=== PATIENT | female | born 1990 | race Asian ===

== ENCOUNTER → 2023-09-25 12:34 | Outpatient (REF) | payer OTHER, SELFPAY ==
[2023-09-25 14:01] LABS: Rubella Positive
[2023-09-25 14:33] LABS: Hepatitis B Surface Antibody Positive
== END ==
LOC: OHS 12:34
PROVIDERS: ATTENDING PHYSICIAN Nurse Practitioner Family
DX: Z23 Encounter for immunization (principal)
CPT/HCPCS: 36415; 86706; 86735; 86762; 86765; 86787

== ENCOUNTER → 2024-10-23 07:03 | Outpatient (REF) | payer BC, SELFPAY | LOC: RAD 07:03 | PROVIDERS: ATTENDING PHYSICIAN Family Medicine | DX: M65.4 Radial styloid tenosynovitis [de Quervain] (principal); M25.531 Pain in right wrist; M79.644 Pain in right finger(s) | CPT/HCPCS: 73110; 73130 ==

== ENCOUNTER → 2025-01-08 12:42 | Outpatient (REF) | payer BC, SELFPAY ==
[2025-01-08 15:09] LABS: Beta HCG Quantitative 101790.00 mIU/ml
== END ==
LOC: REG 12:42
PROVIDERS: ATTENDING PHYSICIAN Nurse Practitioner Family
DX: Z32.01 Encounter for pregnancy test, result positive (principal)
CPT/HCPCS: 36415; 84702

== ENCOUNTER → 2025-01-14 11:30 | Outpatient (REF) | payer BC, SELFPAY ==
[2025-01-14 12:48] LABS: Urine Character Clear (Clear)
[2025-01-14 13:10] LABS: Hematocrit 34.4 % (37.0-47.0); Hemoglobin 10.8 g/dL (12.0-16.0); Mean Corp Hgb Conc. 31.4 g/dL (33.0-37.0); Mean Corpuscular Volume 65.9 fL (81.0-99.0); Nucleated Red Blood Cells % 0 %; Platelet Count 299 10^3/uL (130-400); Red Cell Dist. Width 15.1 % (11.5-14.5)
[2025-01-14 14:06] LABS: Glycohemoglobin (HgbA1c) 5.2 % (4.0-5.6)
[2025-01-14 14:28] LABS: Beta HCG Quantitative 63375.00 mIU/ml
[2025-01-14 14:30] LABS: Urine Squamous Cell >30 /LPF (Few)
[2025-01-14 14:32] LABS: Urine Red Blood Cell 0-2 /HPF (0-2); Urine White Cell 0-2 /HPF (0-5)
[2025-01-15 19:32] LABS: Hepatitis B Surface Antigen Negative (Negative)
[2025-01-15 19:40] LABS: Hepatitis C Antibody Negative (Negative)
[2025-01-16 12:46] LABS: Syphilis/T. pallidum Ab Reflex Negative (Negative)
== END ==
LOC: REG 11:30
PROVIDERS: ATTENDING PHYSICIAN Nurse Practitioner Family
DX: Z32.01 Encounter for pregnancy test, result positive (principal)
CPT/HCPCS: 36415; 81003; 81015; 83036; 84702; 85025; 86704; 86706; 86762; 86780; 86803; 86850; 86900; 86901; 87077; 87086; 87340; 87389

== ENCOUNTER → 2025-01-16 14:37 | Outpatient (REF) | payer BC, SELFPAY | LOC: RAD 14:37 | PROVIDERS: ATTENDING PHYSICIAN Nurse Practitioner Family | DX: Z34.91 Encounter for supervision of normal pregnancy, unspecified, first trimester (principal) | CPT/HCPCS: 76801 ==

== ENCOUNTER → 2025-01-27 07:05 | Outpatient (REF) | payer BC, SELFPAY | LOC: PNTC 07:05 | PROVIDERS: ATTENDING PHYSICIAN Student in an Organized Health Care Education/Training Program | DX: O36.70X0 Maternal care for viable fetus in abdominal pregnancy, unspecified trimester, not applicable or unspecified (principal) | CPT/HCPCS: 36415; 76801; 76813 ==

== ENCOUNTER → 2025-01-28 16:16 | Outpatient (REF) | payer BC, SELFPAY | LOC: CLAB 16:16 | PROVIDERS: ATTENDING PHYSICIAN Obstetrics & Gynecology | DX: Z34.81 Encounter for supervision of other normal pregnancy, first trimester (principal) | CPT/HCPCS: 87086; 87491; 87591 ==

== ENCOUNTER → 2025-03-19 13:26 | Outpatient (REF) | payer BC, SELFPAY | LOC: PNTC 13:26 | PROVIDERS: ATTENDING PHYSICIAN Obstetrics & Gynecology | DX: Z34.92 Encounter for supervision of normal pregnancy, unspecified, second trimester (principal); Z36.3 Encounter for antenatal screening for malformations; Z36.86 Encounter for antenatal screening for cervical length | CPT/HCPCS: 76805 ==

== ENCOUNTER → 2025-04-09 18:05 | Outpatient (REF) | payer BC, SELFPAY ==
[2025-04-10 17:52] LABS: Urine Character Cloudy (Clear)
[2025-04-10 18:29] LABS: Urine Squamous Cell 26-30 /LPF (Few)
== END ==
LOC: CLAB 18:05
PROVIDERS: ATTENDING PHYSICIAN Obstetrics & Gynecology
DX: Z87.440 Personal history of urinary (tract) infections (principal)
CPT/HCPCS: 81003; 81015; 87086